=== PATIENT | male | born 1970 | race Caucasian/White ===

== ENCOUNTER → 2016-05-30 | Outpatient (CLI) | payer BC ==
[~2016-05-30] MED LIST: IBUP-1459 PO; OXYC-57 PO
--- NOTE | 2016-05-30 13:11 | DIAGNOSTIC IMAGING REPORT ---
CT OF THE CHEST WITH IV CONTRAST CLINICAL HISTORY: D3A.8 Neuroendocrine [id number] COMPARISON STUDY: No previous studies for comparison. TECHNIQUE: Following the IV administration of 119 mL of Optiray-320, CT of the thorax was performed from the thoracic inlet to the lung bases. Images are reviewed in the axial, sagittal, and coronal planes. IV contrast was administered without complication. CT DOSE: 694.84 mGy.cm FINDINGS: Thyroid: Imaged portions of the thyroid gland are normal in appearance. Thoracic aorta: The thoracic aorta is normal in course and caliber, noting standard 3-vessel arch anatomy. No aneurysm or dissection is seen. Pulmonary vasculature: The pulmonary trunk is normal in caliber. There are no central filling defects identified to suggest pulmonary embolus. Note that this examination was not protocoled for the evaluation of pulmonary emboli. HEART: The heart is normal in size and configuration, without pericardial effusion. Lungs and pleural spaces: No pleural effusions are visualized. There is no focal pulmonary consolidation. There is a 2.5 mm right lower lobe pulmonary nodule on image #[id number]. Mediastinum: There is no mediastinal lymphadenopathy. Erma: Clear. Axilla: Clear. Upper abdomen: To be discussed in separate CT scan of the abdomen and pelvis Skeletal structures: There are no lytic or blastic osseous lesions. IMPRESSION: 1. 2.5 mm right lower lobe pulmonary nodule 2. No evidence of focal pulmonary consolidation 3. No evidence of pathologic adenopathy Electronically signed by: Bnag Velásquez M.D. 05/30/2016 1:09 PM
--- NOTE | 2016-05-31 08:24 | DIAGNOSTIC IMAGING REPORT ---
CT OF THE ABDOMEN AND PELVIS WITH CONTRAST CLINICAL HISTORY: Neuroendocrine tumor. Carcinoid tumor. COMPARISON STUDY: None. TECHNIQUE: Following IV administration of 119 mL of Optiray-320, axial images of the abdomen and pelvis were obtained from the lung bases to the proximal femurs. Images were reviewed in the axial, sagittal, and coronal planes. IV contrast was administered without complication. Oral contrast was administered. FINDINGS: The chest will be reported separately. The sensitivity for detection of hypervascular hepatic lesions is diminished on the exam. However, no hepatic lesions are identified. The spleen, adrenal glands, kidneys and pancreas are normal. There is no abdominal or pelvic lymphadenopathy. There are fat-containing bilateral inguinal hernias, left larger than right. No suspicious osseous lesions are present. There is no ascites. IMPRESSION: 1. No evidence for metastatic disease within the abdomen or pelvis. 2. Decreased sensitivity for detection of hypervascular hepatic lesions given lack arterial phase but no hepatic lesions identified on this exam. Electronically signed by: Nik Lund M.D. 05/31/2016 8:22 AM
== END | disposition home or self-care (01) ==
LOC: C.CTS 10:13
PROVIDERS: ATTEND Internal Medicine
DX: D3A.00 Benign carcinoid tumor of unspecified site (principal); D3A.8 Other benign neuroendocrine tumors; R91.1 Solitary pulmonary nodule

== ENCOUNTER → 2016-06-05 | Outpatient (CLI) | payer BC ==
[2016-06-11 23:32] LABS: 5-HIAA 4.3 mg/24 h (<=6.0)
== END | disposition home or self-care (01) ==
LOC: C.LAB 14:22
PROVIDERS: ATTEND Surgery
DX: D3A.8 Other benign neuroendocrine tumors (principal)

== ENCOUNTER 2016-06-16 05:22 | Inpatient (IN) | payer BC, OTHER ==
[2016-06-09 13:30] VITALS: BMI 26.0
[~2016-06-16] VITALS: Ht 177.8 cm; Wt 81.8 kg
[2016-06-16] VITALS (7 sets, daily range): BP systolic 108–133; BP diastolic 68–83; PULSE 70–97; TEMP 36.5–36.9; O2SAT 93–97; Ht 177.8 cm; Wt 81.8 kg
[2016-06-16] MEDS ORDERED: LACTATED RINGER'S 1000ML 1,000 ML IV SCH (06:00)
--- NOTE | 2016-06-16 06:06 | History & Physical Bridge Note ---
H&P Re-Evaluation Bridge Note: I have examined the patient, reviewed the History & Physical and in the interval since the performance of the History & Physical I have noted the following changes of clinical significance: No changes noted no one at bedside
[2016-06-16] MEDS ORDERED: ROCURONIUM BROMIDE 10 MG/ML 5 ML VIAL ONE ×2 (06:23→08:14)
[2016-06-16] MEDS ORDERED: PROPOFOL IV EMULSION 10 MG/ML 20 ML VIAL IV ONE (06:23)
[2016-06-16] MEDS ORDERED: NEOSTIGMINE METHYLSULFATE 5 MG/5 ML SYR ONE (06:23)
[2016-06-16] MEDS ORDERED: MIDAZOLAM HCL 1 MG/ML 2ML VIAL ONE (06:23)
[2016-06-16] MEDS ORDERED: FENTANYL CITRATE INJ 50 MCG/1 ML 2 ML VIAL ONE ×3 (06:23→09:09)
[2016-06-16] MEDS ORDERED: ONDANSETRON INJ 2 MG/ML 2 ML VIAL ONE (06:23)
[2016-06-16] MEDS ORDERED: GLYCOPYRROLATE INJ 0.2 MG/ML VIAL ONE ×2 (06:23→06:25)
[2016-06-16] MEDS ORDERED: LIDOCAINE HCL 2% 2 ML VIAL (20MG/ML) ONE (06:23)
[2016-06-16] MEDS ORDERED: DEXAMETHASONE SOD INJ 4 MG/ML VIAL ONE (06:23)
[2016-06-16] MEDS ORDERED: HYDROmorphone INJ 2 MG/ML SYR/VIAL ONE (06:27)
[2016-06-16] MEDS ORDERED: MoRPHine SULFATE 10 MG/ML CARP/VIAL IV PRN (07:15)
[2016-06-16] MEDS ORDERED: LABETALOL HCL IV 5 MG/ML 20ML IV PRN (07:15)
[2016-06-16] MEDS ORDERED: FLUMAZENIL 0.1 MG/1 ML 10 ML VIAL IV PRN (07:15)
[2016-06-16] MEDS ORDERED: ATROPINE SULFATE 0.1 MG/ML 5ML SYR IV PRN (07:15)
[2016-06-16] MEDS ORDERED: NALOXONE HCL 0.4 MG/1 ML VIAL/CARP IV PRN ×2 (07:15→10:15)
[2016-06-16] MEDS ORDERED: PHENYLEPHRINE 100MCG/ML 5ML SYR IV PRN (07:15)
[2016-06-16] MEDS ORDERED: EpHEDrine SULFATE INJ 50 MG/ML AMP IV PRN (07:15)
[2016-06-16] MEDS ORDERED: MEPERIDINE HCL 25 MG/ML CARP IV PRN (07:15)
[2016-06-16] MEDS ORDERED: ONDANSETRON INJ 2 MG/ML 2 ML VIAL IV PRN ×2 (07:15→10:15)
[2016-06-16] MEDS ORDERED: CEFOXITIN SOD 1 GM VIAL ONE (07:17)
[2016-06-16] MEDS ORDERED: ACETAMINOPHEN 1000 MG/100 ML IV IV ONE (07:17)
[2016-06-16] MEDS ORDERED: SODIUM CHLORIDE 0.9% INJ 10 ML VIAL ONE (09:29)
--- NOTE | 2016-06-16 10:09 | [facility] Post Operative Brief Note ---
Immediate Operative Summary Operative Date Jun 16, 2016. Pre-Operative Diagnosis carcinoid tumor terminal ileum Post-Operative Diagnosis carcinoid tumor same Procedure(s) Performed Open Resection Ileum and Right Colon Surgeon Dr. Sj Alvarez Architect In Training Surgeon(s) Omega Ortiz Estimated Blood Loss 50 ML Findings small 5mm nodule terminal ileum nicole 1 inch from ileocecal valve frozen section confirms lesion Specimens Frozen 1. illeum and right colon Permanen A: omentum Drains 1/4 inch courtney sub cut
[2016-06-16] MEDS ORDERED: MoRPHine SULFATE 1 MG/ML 50 ML PCA CASS ONE (10:21)
--- NOTE | 2016-06-16 10:36 | OPERATIVE REPORT ---
DATE OF OPERATION: 06/16/2016 PREOPERATIVE DIAGNOSIS: Biopsy proven carcinoid tumor terminal ileum. POSTOPERATIVE DIAGNOSIS: Same. PROCEDURE: Right ileum and right colon resection with primary imwe-vh-bklw anastomosis. SURGEON: Dr. Alvarez. ELECTRICAL ELECTRONICS ENGINEERS: Talib Ortiz PA-C. OPERATION AND FINDINGS: SUMMARY: The patient was brought into the operating room theater. The abdomen was prepped with Betadine solution and properly draped. Sanchez catheter was inserted. We made a small incision around the umbilicus up towards the epigastric area, deepened through subcutaneous tissue into the belly wall. We at this time were able to elevate the wall, placed a hand on there, we could identify the cecum, but we also feel that the right colon and the hepatic flexure was really stuck to the anterior abdominal wall into the gallbladder area, also towards the liver. We at this point enlarged the incision sufficiently enough that we divided the white line of Toldt sufficiently enough to elevate the terminal ileum up into the wound, meticulously took around the right colon mobilized the hepatic flexure significantly that we can delivered all into the wound. Of note, the patient had quite a bit of abdominal scar tissue fatty lobulated area throughout the abdomen with adhesions intramesenterically. I am not sure that this gentleman may have had an injury in the past that caused this diffuse sort of inflammatory response but since he has had no previous abdominal adhesions may have had some trauma. Having said that, once we mobilized the said segment we brought it up onto the operative field. I tried to feel out the area of the terminal ileum. Initially it was up all the way about 6 inches, could not feel anything then we retrospectively went back and felt an area about an inch from the ileocecal valve that was quite hard and pretty much the characteristics of what had been biopsied. There was no tattoo in the area. At this point, we divided the terminal ileum using a BRIONNA stapler 60 and also divided the terminal ileum just to right of the middle colic. We then scored the mesentery, completely delivered the right colon and terminal ileum and the hepatic flexure out into the wound. We avoided the duodenal area. As we had ligated these with 2-0 silk suture we marked the apical area right at our line of resection in the mesentery first place that we would try to suture the mesentery closed. The specimen was then removed and sent to pathology to confirm that this was the area in the terminal ileum. I had opened the terminal ileum, I could document that area and frozen section confirmed that this is a carcinoid. The 2 staple lines were oversewn with 3-0 interrupted silk suture, then a etgx-ur-fzus anastomosis was done with 3-0 silk and 3-0 chromic inner side, anastomosis could accommodate 2 fingers. We closed the mesentery so there was no possibility of hernia. We returned the viscera in normal anatomical position and checked the abdomen for hemostasis and appeared satisfactory. We irrigated the right upper quadrant, placed the packing in that area and there was no evidence of any ongoing bleeding. Once this was all removed, I tried to see if I could feel the stomach, possibility to put an NG tube in, but this inflammatory response of the omentum was going up towards the greater curvature therefore I left it intact, plus there was no evidence of any obstruction in the bowel as we ran it, I left the NG tube out. The abdomen was then closed with interrupted #1 PDS [id number]. Subcutaneous tissue now closed and irrigated, quarter inch Tendoy was placed in the subcutaneous and conrad for skin edges. Dressing was applied. The procedure was tolerated well by the patient. Estimated blood loss approximately 50 mL. The patient was taken to recovery room in good condition. I attest to the content of the Intraoperative Record and any orders documented therein. Any exceptio ns are noted below.
[2016-06-16] MEDS ORDERED: KETOROLAC TROMETHAMINE 30 MG/ML VIAL ONE (10:41)
[2016-06-16] MEDS: HYDROmorphone INJ 1 MG/ML SYR IV PRN ×4 (10:42→10:57)
[2016-06-16] MEDS ORDERED: KETOROLAC TROMETHAMINE 30 MG/ML VIAL IV STA (10:46)
--- NOTE | 2016-06-16 11:41 | Anesthesiology Progress Note ---
Anesthesia Post Op Note Date & Time Jun 16, 2016 at 11:41 Vital Signs Pain Intensity: 3 Vital Signs Past 12 Hours Date Time Temp Pulse Resp B/P Pulse Ox O2 Delivery O2 Flow Rate FiO2 06/16/16 11:33 110/68 06/16/16 11:30 94 14 95 06/16/16 11:30 90 06/16/16 11:28 113/64 06/16/16 11:25 80 06/16/16 11:25 81 14 90 06/16/16 11:23 107/60 06/16/16 11:20 89 14 06/16/16 11:20 88 14 96 06/16/16 11:18 116/66 06/16/16 11:15 92 15 06/16/16 11:15 94 15 94 06/16/16 11:14 76 16 97 06/16/16 11:14 75 16 06/16/16 11:13 112/62 06/16/16 11:09 76 13 97 06/16/16 11:09 75 13 06/16/16 11:08 114/72 06/16/16 11:04 93 12 96 06/16/16 11:04 94 12 06/16/16 11:03 36.4 06/16/16 11:00 84 14 06/16/16 11:00 84 14 96 06/16/16 10:58 117/77 06/16/16 10:55 96 16 94 06/16/16 10:55 94 16 06/16/16 10:53 112/82 06/16/16 10:50 81 17 06/16/16 10:50 80 17 99 06/16/16 10:49 129/76 06/16/16 10:45 87 14 97 06/16/16 10:45 85 14 06/16/16 10:43 119/76 06/16/16 10:40 Nasal Cannula 4 06/16/16 10:40 96 12 124/82 98 06/16/16 10:40 95 12 06/16/16 10:39 /75 06/16/16 10:35 96 22 97 06/16/16 10:35 96 22 06/16/16 10:33 117/67 06/16/16 10:30 91 16 95 06/16/16 10:30 92 16 06/16/16 10:28 112/65 06/16/16 10:25 89 16 06/16/16 10:25 89 16 93 06/16/16 10:23 103/71 06/16/16 10:20 85 12 06/16/16 10:20 86 12 99 06/16/16 10:18 116/68 06/16/16 10:15 88 20 99 06/16/16 10:15 88 20 06/16/16 10:13 104/72 06/16/16 10:12 107/66 06/16/16 10:10 37 90 16 107/66 98 Mask 10 06/16/16 05:39 36.7 97 18 133/83 97 Room Air Notes Mental Status: alert / awake / arousable, participated in evaluation Pt Amnestic to Procedure: Yes Nausea / Vomiting: adequately controlled Pain: adequately controlled Airway Patency, RR, SpO2: stable & adequate BP & HR: stable & adequate Hydration State: stable & adequate Anesthetic Complications: no major complications apparent
[2016-06-16] MEDS: CEFOXITIN IV 2,000 MG in DEXTROSE 5% 50ML 50 ML IV SCH ×2 (13:22→20:31)
[2016-06-16] MEDS: SODIUM CHLORIDE 0.9% 1000ML 1,000 ML IV SCH (13:22)
[2016-06-16 13:26] LABS: PROTHROMBIN TIME (PATIENT) 10.9 SECONDS (9.0-12.0)
[2016-06-16] MEDS ORDERED: NURSING VERBAL MED ORDER ONE ×2 (13:30→13:45)
[2016-06-16] MEDS: LACTATED RINGER'S 1000ML 1,000 ML IV SCH ×2 (14:18→21:33)
[2016-06-16] MEDS: ACETAMINOPHEN IV 1,000 MG in EMPTY BAG 0 ML IV SCH (14:18)
[2016-06-16] MEDS: HEPARIN SOD 5000 UNIT/0.5 ML CARP SQ SCH (19:32)
[2016-06-16] MEDS: MoRPHine SULFATE 1 MG/ML 50 ML PCA CASS IV PRN (22:58)
[2016-06-17] VITALS (8 sets, daily range): BP systolic 95–127; BP diastolic 58–72; PULSE 75–96; TEMP 36.7–37.1; O2SAT 91–96
[2016-06-17] MEDS: ACETAMINOPHEN IV 1,000 MG in EMPTY BAG 0 ML IV SCH ×2 (00:01→08:12)
[2016-06-17] MEDS: CEFOXITIN IV 2,000 MG in DEXTROSE 5% 50ML 50 ML IV SCH (01:55)
[2016-06-17] MEDS: MoRPHine SULFATE 1 MG/ML 50 ML PCA CASS IV PRN ×4 (02:03→23:18)
[2016-06-17] MEDS: LACTATED RINGER'S 1000ML 1,000 ML IV SCH ×3 (04:56→21:29)
[2016-06-17] MEDS ORDERED: NURSING VERBAL MED ORDER ONE (06:15)
[2016-06-17] MEDS: HEPARIN SOD 5000 UNIT/0.5 ML CARP SQ SCH ×3 (06:33→21:40)
[2016-06-17] MEDS ORDERED: KETOROLAC TROMETHAMINE 30 MG/ML VIAL IV PRN (06:45)
--- NOTE | 2016-06-17 06:56 | Surgery Progress Note ---
Surgery Progress Note Date of Service Jun 17, 2016. Subjective Post OP Day: 1 + pain controlled, + using CENTERLESS GRINDER OPERATOR, No nausea Objective Vital Signs: Date Time Temp Pulse Resp B/P Pulse Ox O2 Delivery O2 Flow Rate FiO2 06/17/16 03:51 36.7 96 16 127/71 96 Nasal Cannula 2.0 06/17/16 00:00 95 Nasal Cannula 4.0 06/16/16 23:20 36.9 87 16 117/73 97 Nasal Cannula 4.0 06/16/16 19:34 36.9 70 16 113/72 97 Nasal Cannula 4.0 06/16/16 15:14 36.8 96 16 114/69 97 Nasal Cannula 4.0 06/16/16 14:20 36.8 14 123/72 94 Nasal Cannula 4.0 06/16/16 13:37 Nasal Cannula 4.0 06/16/16 13:10 36.5 88 16 108/68 93 Nasal Cannula 2.0 06/16/16 12:10 36.8 81 16 109/68 95 Nasal Cannula 4.0 06/16/16 12:10 Nasal Cannula 4.0 06/16/16 12:10 95 Nasal Cannula 4.0 06/16/16 11:49 81 12 96 06/16/16 11:49 81 12 06/16/16 11:48 104/64 06/16/16 11:44 85 13 06/16/16 11:44 85 12 98 06/16/16 11:43 107/65 06/16/16 11:39 92 14 94 06/16/16 11:39 91 14 06/16/16 11:38 110/68 06/16/16 11:34 80 7 95 06/16/16 11:34 81 7 06/16/16 11:33 110/68 06/16/16 11:30 94 14 95 06/16/16 11:30 90 06/16/16 11:28 113/64 06/16/16 11:25 80 06/16/16 11:25 81 14 90 06/16/16 11:23 107/60 06/16/16 11:20 89 14 06/16/16 11:20 88 14 96 06/16/16 11:18 116/66 06/16/16 11:15 92 15 06/16/16 11:15 94 15 94 06/16/16 11:14 76 16 97 1/19/17 11:14 75 16 06/16/16 11:13 112/62 06/16/16 11:09 76 13 97 06/16/16 11:09 75 13 06/16/16 11:08 114/72 06/16/16 11:04 93 12 96 06/16/16 11:04 94 12 06/16/16 11:03 36.4 06/16/16 11:00 84 14 06/16/16 11:00 84 14 96 06/16/16 10:58 117/77 06/16/16 10:55 96 16 94 06/16/16 10:55 94 16 06/16/16 10:53 112/82 06/16/16 10:50 81 17 06/16/16 10:50 80 17 99 06/16/16 10:49 129/76 06/16/16 10:45 87 14 97 06/16/16 10:45 85 14 06/16/16 10:43 119/76 06/16/16 10:40 Nasal Cannula 4 06/16/16 10:40 96 12 124/82 98 06/16/16 10:40 95 12 06/16/16 10:39 /75 06/16/16 10:35 96 22 97 06/16/16 10:35 96 22 06/16/16 10:33 117/67 06/16/16 10:30 91 16 95 06/16/16 10:30 92 16 06/16/16 10:28 112/65 06/16/16 10:25 89 16 06/16/16 10:25 89 16 93 06/16/16 10:23 103/71 06/16/16 10:20 85 12 06/16/16 10:20 86 12 99 06/16/16 10:18 116/68 06/16/16 10:15 88 20 99 06/16/16 10:15 88 20 06/16/16 10:13 104/72 06/16/16 10:12 107/66 06/16/16 10:10 37 90 16 107/66 98 Mask 10 Physical Exam: urine output (325) Abdomen: soft, + distended (slighlty) Incision(s): drainage (from courtney) Laboratory Results: Results Past 24 Hours Test 06/16/16 13:05 06/17/16 04:44 Range/Units Prothrombin Time 10.9 9.0-12.0 SECONDS Prothromb Time International Ratio 1.0 0.9-1.1 Microbiology Results 06/16/16 Urine Culture, Received Pending Assessment & Plan s/p right hemicolectomy little bloated, maybe clears later today ambulate stopped continuous on CENTERLESS GRINDER OPERATOR, add prn Ofirmev, Toradol labs pending d/c reilly later when OOB
[2016-06-17] MEDS ORDERED: ACETAMINOPHEN IV 100 ML IV PRN (07:00)
[2016-06-17 07:29] LABS: BASO % 0.1 %; BASO ABS # 0.01 K/uL (0-0.2); COMPLETE YES; HEMATOCRIT 35.7 % (42-52); IG% 0.3 %; LYMPH % 8.1 %; MEAN CELL VOLUME 88.1 fL (80-100); MEAN CORPUSCULAR HEMOGLOBIN 30.1 pg (25-34); MEAN CORPUSCULAR HGB CONC 34.2 g/dl (32-36); MEAN PLATELET VOLUME 10.9 fL (7.4-10.4); MONO % 10.7 %; NEUT % 80.8 %; PLATELET COUNT 199 K/uL (130-400); RED BLOOD COUNT 4.05 M/uL (4.7-6.1); WHITE BLOOD COUNT 14.77 K/uL (4.8-10.8)
--- NOTE | 2016-06-17 07:36 | Anesthesiology Progress Note ---
Anesthesia Post Op Note Date & Time Jun 17, 2016 at 07:35 Vital Signs Pain Intensity: 4.0 Vital Signs Past 12 Hours Date Time Temp Pulse Resp B/P Pulse Ox O2 Delivery O2 Flow Rate FiO2 06/17/16 07:12 36.7 77 16 102/65 95 Room Air 06/17/16 03:51 36.7 96 16 127/71 96 Nasal Cannula 2.0 06/17/16 00:00 95 Nasal Cannula 4.0 06/16/16 23:20 36.9 87 16 117/73 97 Nasal Cannula 4.0 Notes Mental Status: alert / awake / arousable, participated in evaluation Pt Amnestic to Procedure: Yes Nausea / Vomiting: adequately controlled Pain: adequately controlled Airway Patency, RR, SpO2: stable & adequate BP & HR: stable & adequate Hydration State: stable & adequate Anesthetic Complications: no major complications apparent
--- NOTE | 2016-06-17 07:50 | PROGRESS NOTE ---
DATE: 06/17/2016 Jose is resting comfortably, although he is having some abdominal discomfort as expected. He is alert, coherent. Intraoperative findings were discussed with him again as I had yesterday afternoon. His last vitals showed a temperature of 36.7, pulse 77, respirations 16, blood pressure 102/65. I\T\O, he had 325 mL of urine overnight. The abdomen is softly distended. The dressing is a little tinged of blood. He has a drain in the subQ. Laboratory studies this morning showed a chemistry of hemoglobin 12.2, WBC is 14.77. The chemistries pending. At this point we will discontinue the Sanchez. Increase his activity. Change the abdominal dressing. Probably remove the drain in a few days and start him slightly on a clear liquid diet. He is not nauseated. His pain seems to be managed well.
[2016-06-17 07:58] LABS: BUN/CREATININE RATIO 14.9 (10-20); CALCIUM 8.5 mg/dl (8.5-10.1); POTASSIUM 4.6 mmol/L (3.5-5.1)
[2016-06-17] MEDS: SODIUM CHLORIDE 0.9% 1000ML 1,000 ML IV SCH (10:09)
[2016-06-18] MEDS: LACTATED RINGER'S 1000ML 1,000 ML IV SCH ×3 (00:04→13:26)
[2016-06-18] MEDS: HEPARIN SOD 5000 UNIT/0.5 ML CARP SQ SCH ×3 (05:51→21:36)
--- NOTE | 2016-06-18 05:54 | Surgery Progress Note ---
Surgery Progress Note Date of Service Jun 18, 2016. Subjective Post OP Day: 2 + using DISTRIBUTION WAREHOUSE MANAGER, No bowel movement, No flatus, No vomiting awake, alert, using DISTRIBUTION WAREHOUSE MANAGER some, voiding- good ur output walked a little yest Objective Vital Signs: Date Time Temp Pulse Resp B/P Pulse Ox O2 Delivery O2 Flow Rate FiO2 06/18/16 00:00 Room Air 06/17/16 22:59 36.7 76 16 117/72 92 Room Air 06/17/16 16:00 92 Room Air 06/17/16 15:18 36.7 81 16 95/58 92 Room Air 06/17/16 11:15 91 Room Air 06/17/16 11:09 37.1 75 19 104/64 95 Nasal Cannula 2.0 06/17/16 11:00 Nasal Cannula 1.0 06/17/16 07:12 36.7 77 16 102/65 95 Room Air General Appearance: no apparent distress Respiratory/Chest: no respiratory distress Abdomen: + distended (mild distention, some bowel sounds but decreased) Incision(s): dry Laboratory Results: Results Past 24 Hours Test 06/17/16 06:15 06/18/16 04:44 Range/Units White Blood Count 14.77 4.8-10.8 K/uL Red Blood Count 4.05 4.7-6.1 M/uL Hemoglobin 12.2 14.0-18.0 g/dL Hematocrit 35.7 42-52 % Mean Corpuscular Volume 88.1 80-100 fL Mean Corpuscular Hemoglobin 30.1 25-34 pg Mean Corpuscular Hemoglobin Concent 34.2 32-36 g/dl Platelet Count 199 130-400 K/uL Mean Platelet Volume 10.9 7.4-10.4 fL Neutrophils (%) (Auto) 80.8 % Lymphocytes (%) (Auto) 8.1 % Monocytes (%) (Auto) 10.7 % Eosinophils (%) (Auto) 0.0 % Basophils (%) (Auto) 0.1 % Neutrophils # (Auto) 11.93 1.4-6.5 K/uL Lymphocytes # (Auto) 1.20 1.2-3.4 K/uL Monocytes # (Auto) 1.58 0.11-0.59 K/uL Eosinophils # (Auto) 0.00 0-0.5 K/uL Basophils # (Auto) 0.01 0-0.2 K/uL RDW Standard Deviation 42.7 36.4-46.3 fL RDW Coefficient of Variation 13.2 11.5-14.5 % Immature Granulocyte % (Auto) 0.3 % Immature Granulocyte # (Auto) 0.05 0.00-0.02 K/uL Sodium Level 137 136-145 mmol/L Potassium Level 4.6 3.5-5.1 mmol/L Chloride Level 101 98-107 mmol/L Carbon Dioxide Level 25 21-32 mmol/L Anion Gap 11.0 3-11 mmol/L Blood Urea Nitrogen 15 7-18 mg/dl Creatinine 1.00 0.60-1.40 mg/dl Est Creatinine Clear Calc Drug Dose 96.3 ml/min Estimated GFR () 104.9 Estimated GFR (Non- 90.5 BUN/Creatinine Ratio 14.9 10-20 Random Glucose 124 70-99 mg/dl Calcium Level 8.5 8.5-10.1 mg/dl Assessment & Plan 06/18/16- s/p Rt colectomy, encourage mobility, cont current IV meds advance diet when Gi activity improves, check labs
[2016-06-18] MEDS: MoRPHine SULFATE 1 MG/ML 50 ML PCA CASS IV PRN ×3 (07:01→19:26)
[2016-06-18 07:14] LABS: COMPLETE YES; EOS % 0.3 %; HEMATOCRIT 32.1 % (42-52); IG% 0.1 %; LYMPH % 16.1 %; LYMPH ABS # 1.54 K/uL (1.2-3.4); MEAN CELL VOLUME 89.4 fL (80-100); MEAN CORPUSCULAR HEMOGLOBIN 30.6 pg (25-34); MEAN CORPUSCULAR HGB CONC 34.3 g/dl (32-36); MEAN PLATELET VOLUME 11.1 fL (7.4-10.4); NEUT % 73.5 %; PLATELET COUNT 178 K/uL (130-400); RED BLOOD COUNT 3.59 M/uL (4.7-6.1); WHITE BLOOD COUNT 9.54 K/uL (4.8-10.8)
[2016-06-18 07:24] VITALS: BP 116/76; PULSE 73; TEMP 37; O2SAT 92
[2016-06-18 07:56] LABS: CALCIUM 8.4 mg/dl (8.5-10.1); CREATININE 0.8 mg/dl (0.60-1.40); POTASSIUM 3.8 mmol/L (3.5-5.1)
[2016-06-18] MEDS: SODIUM CHLORIDE 0.9% 1000ML 1,000 ML IV SCH (10:09)
[2016-06-18 15:01] VITALS: BP 121/75; PULSE 75; TEMP 36.8; O2SAT 92
[2016-06-18 23:17] VITALS: BP 117/72; PULSE 86; TEMP 37.1; O2SAT 95
[2016-06-19 03:07] VITALS: BP 110/70; PULSE 86; TEMP 37.2; O2SAT 92
[2016-06-19] MEDS: LACTATED RINGER'S 1000ML 1,000 ML IV SCH ×2 (05:19→14:23)
[2016-06-19] MEDS: HEPARIN SOD 5000 UNIT/0.5 ML CARP SQ SCH ×3 (05:20→21:19)
[2016-06-19 06:02] LABS: BASO % 0.1 %; BASO ABS # 0.01 K/uL (0-0.2); COMPLETE YES; EOS % 3.6 %; HEMATOCRIT 35.7 % (42-52); IG% 0.1 %; LYMPH % 27.6 %; LYMPH ABS # 2.45 K/uL (1.2-3.4); MEAN CELL VOLUME 90.4 fL (80-100); MEAN CORPUSCULAR HEMOGLOBIN 30.6 pg (25-34); MEAN CORPUSCULAR HGB CONC 33.9 g/dl (32-36); MEAN PLATELET VOLUME 10.2 fL (7.4-10.4); MONO % 11.1 %; NEUT % 57.5 %; PLATELET COUNT 179 K/uL (130-400); RED BLOOD COUNT 3.95 M/uL (4.7-6.1); WHITE BLOOD COUNT 8.88 K/uL (4.8-10.8)
--- NOTE | 2016-06-19 06:17 | Surgery Progress Note ---
Surgery Progress Note Date of Service Jun 19, 2016. Subjective Post OP Day: 3 No nausea, No vomiting feels ok, tolerating clear liquids small amt flatus, no bm yet walking Objective Vital Signs: Date Time Temp Pulse Resp B/P Pulse Ox O2 Delivery O2 Flow Rate FiO2 06/19/16 03:07 37.2 86 16 110/70 92 Room Air 06/18/16 23:17 37.1 86 16 117/72 95 Room Air 06/18/16 19:45 Room Air 06/18/16 15:01 36.8 75 18 121/75 92 Room Air 06/18/16 10:20 Room Air 06/18/16 07:24 37.0 73 16 116/76 92 Room Air General Appearance: no apparent distress Respiratory/Chest: no respiratory distress Abdomen: + distended (very mild distention, some bowel sounds) Incision(s): dry, intact Laboratory Results: Results Past 24 Hours Test 06/19/16 05:30 Range/Units White Blood Count 8.88 4.8-10.8 K/uL Red Blood Count 3.95 4.7-6.1 M/uL Hemoglobin 12.1 14.0-18.0 g/dL Hematocrit 35.7 42-52 % Mean Corpuscular Volume 90.4 80-100 fL Mean Corpuscular Hemoglobin 30.6 25-34 pg Mean Corpuscular Hemoglobin Concent 33.9 32-36 g/dl Platelet Count 179 130-400 K/uL Mean Platelet Volume 10.2 7.4-10.4 fL Neutrophils (%) (Auto) 57.5 % Lymphocytes (%) (Auto) 27.6 % Monocytes (%) (Auto) 11.1 % Eosinophils (%) (Auto) 3.6 % Basophils (%) (Auto) 0.1 % Neutrophils # (Auto) 5.10 1.4-6.5 K/uL Lymphocytes # (Auto) 2.45 1.2-3.4 K/uL Monocytes # (Auto) 0.99 0.11-0.59 K/uL Eosinophils # (Auto) 0.32 0-0.5 K/uL Basophils # (Auto) 0.01 0-0.2 K/uL RDW Standard Deviation 44.5 36.4-46.3 fL RDW Coefficient of Variation 13.4 11.5-14.5 % Immature Granulocyte % (Auto) 0.1 % Immature Granulocyte # (Auto) 0.01 0.00-0.02 K/uL Assessment & Plan 06/19/16- slow progress- adv to full liquids, cont STITCH BONDING MACHINE OPERATOR- not using much cont IV- decrease rate 06/18/16- s/p Rt colectomy, encourage mobility, cont current IV meds advance diet when Gi activity improves, check labs 06/18/16- s/p Rt colectomy, encourage mobility, cont current IV meds advance diet when Gi activity improves, check labs
[2016-06-19 06:44] LABS: BUN/CREATININE RATIO 6.4 (10-20); CALCIUM 8.3 mg/dl (8.5-10.1); CREATININE 0.91 mg/dl (0.60-1.40); POTASSIUM 3.4 mmol/L (3.5-5.1)
[2016-06-19 07:10] VITALS: BP 138/91; PULSE 88; TEMP 37.2; O2SAT 94
[2016-06-19] MEDS: MoRPHine SULFATE 1 MG/ML 50 ML PCA CASS IV PRN ×4 (07:55→22:54)
[2016-06-19] MEDS: SODIUM CHLORIDE 0.9% 1000ML 1,000 ML IV SCH (10:09)
[2016-06-19 11:14] VITALS: BP 112/71; PULSE 98; TEMP 36.9; O2SAT 94
[2016-06-19 15:53] VITALS: BP 128/79; PULSE 93; TEMP 37.3; O2SAT 94
[2016-06-19 19:03] VITALS: BP 128/81; PULSE 89; TEMP 37.1; O2SAT 96
[2016-06-19 22:51] VITALS: BP 115/74; PULSE 88; TEMP 37.2; O2SAT 93
[2016-06-20] VITALS (7 sets, daily range): BP systolic 109–142; BP diastolic 68–83; PULSE 81–105; TEMP 36.9–37.2; O2SAT 92–96
[2016-06-20] MEDS: LACTATED RINGER'S 1000ML 1,000 ML IV SCH ×2 (01:34→06:20)
[2016-06-20] MEDS: HEPARIN SOD 5000 UNIT/0.5 ML CARP SQ SCH ×2 (06:14→20:09)
--- NOTE | 2016-06-20 07:50 | SURGERY PROGRESS NOTE ---
DATE: 06/20/2016 HISTORY OF PRESENT ILLNESS: Jose is fourth postoperative day status post resection of ileum and right colon for carcinoid tumor. He has had some flatus, but he has not had his bowel movement yet. PHYSICAL EXAMINATION: His last vitals showed a temperature of 37.1, pulse 84, respirations 16, blood pressure 109/68, O2 sats 92 on room air. His abdomen is slightly distended. The incision has a Myles drain and he has got some ecchymosis around the lower aspect of the incision with some bleeding through the [place] itself. This is probably due to the heparin and therefore, we will decrease it to q. 12 hours. LABORATORY STUDIES: This morning is pending, but yesterday's potassium was 3.4. ASSESSMENT AND PLAN: We will add some potassium on his IV today and recheck his labs. But overall, he seems to progressing well. His path report is still pending.
[2016-06-20 08:11] LABS: BASO % 0.3 %; BASO ABS # 0.02 K/uL (0-0.2); COMPLETE YES; EOS % 4.1 %; HEMATOCRIT 35.4 % (42-52); IG% 0.3 %; LYMPH % 20.8 %; LYMPH ABS # 1.59 K/uL (1.2-3.4); MEAN CORPUSCULAR HEMOGLOBIN 30.2 pg (25-34); MEAN CORPUSCULAR HGB CONC 34.7 g/dl (32-36); MONO % 13.2 %; NEUT % 61.3 %; PLATELET COUNT 198 K/uL (130-400); RED BLOOD COUNT 4.07 M/uL (4.7-6.1); WHITE BLOOD COUNT 7.63 K/uL (4.8-10.8)
[2016-06-20] MEDS: POTASSIUM CHLORIDE INJ 20 MEQ in LACTATED RINGER'S 1000ML 1,000 ML IV SCH ×2 (08:18→20:03)
[2016-06-20] MEDS: SODIUM CHLORIDE 0.9% 1000ML 1,000 ML IV SCH (08:18)
[2016-06-20 08:47] LABS: BUN/CREATININE RATIO 9.4 (10-20); CALCIUM 8.9 mg/dl (8.5-10.1); CREATININE 0.83 mg/dl (0.60-1.40); POTASSIUM 3.7 mmol/L (3.5-5.1)
[2016-06-20] MEDS: MoRPHine SULFATE 1 MG/ML 50 ML PCA CASS IV PRN (19:00)
[2016-06-21 03:10] VITALS: BP 102/64; PULSE 76; TEMP 36.8; O2SAT 93
[2016-06-21] MEDS: OXYCODONE/ACETAMINOPHEN 5-325 TAB PO PRN ×5 (06:03→23:58)
--- NOTE | 2016-06-21 06:12 | SURGERY PROGRESS NOTE ---
DATE: 06/21/2016 Jose is status post operative day status post resection of terminal ileum and right colon. He states he feels better. He is starting to pass some flatus. His abdomen is less distended. His last vitals showed a temperature of 36.8, pulse 76, respirations 16, blood pressure 102/64, O2 sats 93 on room air. I\T\O, he is mobilizing fluids. He is tolerating a liquid diet. He has not had a bowel movement yet, but hopefully this will materialize today and we can discharge him. The abdomen is softer than yesterday. The incision appears intact. The path report is still pending.
[2016-06-21] MEDS ORDERED: OXYC-57 PO (07:24)
--- NOTE | 2016-06-21 07:26 | Discharge Instructions ---
Discharge Instructions Admission Reason for Admission: Carcinoid Tumor, Ileum Discharge Discharge Diagnosis / Problem: right hemicolectomy Discharge Goals Goal(s): Improve disease control Activity Recommendations Activity Limitations: per Instructions/Follow-up section Lifting Limitations: no more than 10 pounds Shower/Bathe: no limitations Driving or Machine Use: if not taken Percocet . Instructions / Follow-Up Instructions / Follow-Up Dr. Alvarez within 1 week, call [phone] if you do not already have an appt Current Hospital Diet Patient's current hospital diet: Full Liquid Diet Discharge Diet Recommended Diet: Regular Diet (eat lighlt for a few days) Procedures Procedures Performed: Open Resection Ileum and Right Colon Pending Studies Studies pending at discharge: no Medical Emergencies . Who to Call and When: Medical Emergencies: If at any time you feel your situation is an emergency, please call 911 immediately. . Non-Emergent Contact Non-Emergency issues call your: Surgeon Call Non-Emergent contact if: you have a fever, temperature is above 101.5, your pain is not controlled, your pain is worsening, wound has increased redness , wound has increased pain . "Provider Documentation" section prepared by Omega Ortiz. VTE Core Measure Inpt VTE Proph given/why not?: Unfractionated heparin SQ, SCD's
[2016-06-21 07:27] VITALS: BP 112/74; PULSE 73; TEMP 36.8; O2SAT 95
[2016-06-21] MEDS: HEPARIN SOD 5000 UNIT/0.5 ML CARP SQ SCH ×2 (08:00→19:56)
[2016-06-21] MEDS: POTASSIUM CHLORIDE INJ 20 MEQ in LACTATED RINGER'S 1000ML 1,000 ML IV SCH (09:33)
[2016-06-21] MEDS ORDERED: NURSING VERBAL MED ORDER ONE (13:30)
[2016-06-21 15:15] VITALS: BP 106/62; PULSE 81; TEMP 36.9; O2SAT 95
[2016-06-21 22:56] VITALS: BP 110/64; PULSE 78; TEMP 36.5; O2SAT 93
[2016-06-22 07:23] VITALS: BP 135/76; PULSE 72; TEMP 36.7; O2SAT 94
[2016-06-22] MEDS: HEPARIN SOD 5000 UNIT/0.5 ML CARP SQ SCH (08:00)
[2016-06-22] MEDS: OXYCODONE/ACETAMINOPHEN 5-325 TAB PO PRN (08:51)
[2016-06-22 09:15] VITALS: BP 135/76; PULSE 72; TEMP 36.7; O2SAT 94
--- NOTE | 2016-06-22 09:26 | SURGERY PROGRESS NOTE ---
DATE: 06/22/2016 DATE: 06/22/2016. Jose is doing well. He has been up and around, has moved his bowels. He is having no real abdominal discomfort, tolerating a diet and he is anxious to go home. His last vitals showed a temperature of 36.7, pulse 72, respirations 14, blood pressure 135/76. Laboratory moss, we have not obtained last couple days, but last hemoglobin was 12.3. The abdomen is soft. He does have some ecchymosis just flank around the incision and this is related to the heparin that he had subQ. At this point, the patient can be discharged. Instructions were written yesterday and further reiterated to him that if there is any problem to call us. We will see him back in our office next week. The path report I did discuss with the patient again this morning is not back yet.
--- NOTE | 2016-06-29 11:37 | DISCHARGE SUMMARY ---
PRIMARY DISCHARGE DIAGNOSIS: Carcinoid tumor of the terminal ileum. PROCEDURE PERFORMED: Right ileum and right colon resection with primary qbjb-kj-oabi anastomosis. HOSPITAL COURSE: The patient is a 46-year-old male with biopsy proven carcinoid tumor over the terminal ileum, admitted through same day and taken to the operating room for right colon and terminal ileum resection. The procedure was well tolerated. He was transferred to the surgical floor. Subcutaneous heparin was used for DVT prophylaxis. Perioperative antibiotics were continued for 24 hours. Sanchez catheter was removed on postoperative day 1. He was started on clear liquids. His pain was managed with a SUPERVISOR METAL FURNITURE FABRICATION and p.r.n. Ofirmev. He had sounds of returning bowel function on postoperative day 3, was advanced to full liquids. By day 4, he was having loose bowel movements. He was advanced to a regular diet, which he tolerated moderately in the evening. By the next morning, he was tolerating diet and oral analgesics. He was stable for discharge on postoperative day 5. A Myles drain had been removed from the incision. DISCHARGE INSTRUCTIONS: Discharge home. Follow up with Dr. Alvarez in 1 week. DISCHARGE MEDICATIONS: Percocet 1-2 tablets every 4 hours as needed. Pathology specimen showed a carcinoid tumor 0.8 cm in the terminal ileum. There was metastatic neuroendocrine tumor present in 1 of 20 lymph nodes (1/20).
== END 2016-06-22 11:15 | disposition home or self-care (01) | DRG 331 ==
LOC: ENRESERVTM → ENRESERVDT → C.ACU 05:22 → C.MSW 11:01
PROVIDERS: ADMIT Surgery; ATTEND Surgery
PROC: 0DBB0ZX Excision of Ileum, Open Approach, Diagnostic (ICD-10-PCS; principal; 2016-06-16 07:00)
PROC: 0DTF0ZZ Resection of Right Large Intestine, Open Approach (ICD-10-PCS; principal; 2016-06-16 07:00)
DX: D3A.012 Benign carcinoid tumor of the ileum (principal); K40.20 Bilateral inguinal hernia, without obstruction or gangrene, not specified as recurrent; Z80.42 Family history of malignant neoplasm of prostate; Z82.49 Family history of ischemic heart disease and other diseases of the circulatory system; Z83.3 Family history of diabetes mellitus; Z83.6 Family history of other diseases of the respiratory system; Z84.1 Family history of disorders of kidney and ureter

== ENCOUNTER → 2016-09-02 | Outpatient (CLI) | payer BC ==
[2016-09-02 16:45] LABS: BASO % 0.6 %; BASO ABS # 0.04 K/uL (0-0.2); COMPLETE YES; EOS % 3.9 %; HEMATOCRIT 43.9 % (42-52); IG% 0.1 %; LYMPH % 33.9 %; LYMPH ABS # 2.33 K/uL (1.2-3.4); MEAN CELL VOLUME 86.9 fL (80-100); MEAN CORPUSCULAR HEMOGLOBIN 29.7 pg (25-34); MEAN CORPUSCULAR HGB CONC 34.2 g/dl (32-36); MEAN PLATELET VOLUME 10.9 fL (7.4-10.4); MONO % 8.3 %; NEUT % 53.2 %; PLATELET COUNT 217 K/uL (130-400); RED BLOOD COUNT 5.05 M/uL (4.7-6.1); WHITE BLOOD COUNT 6.88 K/uL (4.8-10.8)
[2016-09-02 17:04] LABS: BLOOD UREA NITROGEN 13 mg/dl (7-18); BUN/CREATININE RATIO 13.4 (10-20); CALCIUM 9.4 mg/dl (8.5-10.1); CARBON DIOXIDE 29 mmol/L (21-32); CHLORIDE 103 mmol/L (98-107); CREATININE 0.94 mg/dl (0.60-1.40); GLUCOSE 91 mg/dl (70-99); POTASSIUM 4.3 mmol/L (3.5-5.1); SODIUM 140 mmol/L (136-145)
== END | disposition home or self-care (01) ==
LOC: C.LABBC 13:16
PROVIDERS: ATTEND Surgery
DX: Z01.812 Encounter for preprocedural laboratory examination (principal); K40.20 Bilateral inguinal hernia, without obstruction or gangrene, not specified as recurrent

== ENCOUNTER 2016-09-22 05:22 | Day surgery (SDC) | payer BC, OTHER ==
[2016-08-24 10:10] VITALS: BMI 26.0
[~2016-09-22] VITALS: Ht 177.8 cm; Wt 81.8 kg
[2016-09-22 05:45] VITALS: BP 116/73; PULSE 76; TEMP 36.6; O2SAT 97; Ht 177.8 cm; Wt 81.8 kg
[2016-09-22] MEDS ORDERED: LACTATED RINGER'S 1000ML 1,000 ML IV SCH ×2 (06:00→08:57)
[2016-09-22] MEDS ORDERED: NEOSTIGMINE METHYLSULFATE 5 MG/5 ML SYR ONE (06:28)
[2016-09-22] MEDS ORDERED: GLYCOPYRROLATE INJ 0.2 MG/ML VIAL ONE (06:28)
[2016-09-22] MEDS ORDERED: ROCURONIUM BROMIDE 10 MG/ML 5 ML VIAL ONE (06:28)
[2016-09-22] MEDS ORDERED: DEXAMETHASONE SOD INJ 4 MG/ML VIAL ONE (06:28)
[2016-09-22] MEDS ORDERED: LIDOCAINE HCL 2% 2 ML VIAL (20MG/ML) ONE (06:28)
[2016-09-22] MEDS ORDERED: ONDANSETRON INJ 2 MG/ML 2 ML VIAL ONE (06:28)
[2016-09-22] MEDS ORDERED: PROPOFOL IV EMULSION 10 MG/ML 20 ML VIAL IV ONE (06:28)
[2016-09-22] MEDS ORDERED: MIDAZOLAM HCL 1 MG/ML 2ML VIAL ONE (06:29)
[2016-09-22] MEDS ORDERED: FENTANYL CITRATE INJ 50 MCG/1 ML 2 ML VIAL ONE (06:29)
--- NOTE | 2016-09-22 06:31 | History and Physical ---
History & Physical Date Sep 22, 2016. History of Present Illness The patient is a 46 year old male with complaints of nathan ing hernia left symp, s/p right radical colectomy for carcinoid tumor nicole 2 months ago doing well from that and no need for further rx sees oncology for continued f/u here for lap repair nathan ing hernia possible open, pt aware that if open procedure needed will only do symp side that is the left Past Medical/Surgical History Medical Problems: (1) Carcinoid tumor Additional History Hepatic Disease: No Endocrine Disorder: No Kidney Disease: No Hypertension: No Heart Disease: No Bleeding Tendencies: No Infectious Diseases: No Allergies Coded Allergies: Penicillins (Verified Allergy, Mild, FAMILY HISTORY OF REACTION AND YOU HAVE NOT HAD ANY PCN, 09/22/16) NO KNOWN DRUG ALLERGIES (Verified Allergy, Unknown, ., 09/22/16) Home Medications No Active Prescriptions or Reported Meds Physical Examination Skin: warm/dry, no rash Eyes: normal inspection, EOMI, sclerae normal ENT: normal ENT inspection, pharynx normal Head: normocephalic, atraumatic Neck: supple, no adenopathy, trachea midline Respiratory/Chest: lungs clear, normal breath sounds, no respiratory distress Cardiovascular: regular rate, rhythm, no edema, no murmur Abdomen / GI: + pertinent finding (incision midline mostly supraumbilically, nathan ing hernia small testes normal) Back: normal inspection Extremities: normal inspection, normal range of motion Genitourinary - Male: normal testicles Neurologic/Psych: no motor/sensory deficits, alert, normal reflexes, oriented x 3 Diagnosis bilateral ing hernia left symp ASA Classification: ASA Class I Plan of Treatment laparoscopic nathan ing hernia repair(pt marked) in unable to do lap will proceed with left ing hernia repair open do this side only since symp r and c explained to pt including placing urinary cath after asleep
[2016-09-22] MEDS ORDERED: BACITRACIN 50000 UNIT VIAL ONE (06:50)
[2016-09-22] MEDS ORDERED: BUPIVACAINE 0.5 % 5 MG/1 ML MPF 30ML VIAL ONE (06:50)
[2016-09-22] MEDS ORDERED: LACTATED RINGER'S 1000ML 1,000 ML IV PRN (07:16)
[2016-09-22] MEDS ORDERED: KETOROLAC TROMETHAMINE 30 MG/ML VIAL IV. PRN (07:30)
[2016-09-22] MEDS ORDERED: MoRPHine SULFATE 10 MG/ML CARP/VIAL IV PRN (07:30)
[2016-09-22] MEDS ORDERED: ONDANSETRON INJ 2 MG/ML 2 ML VIAL IV PRN ×2 (07:30→09:00)
[2016-09-22] MEDS ORDERED: CEFAZOLIN SOD 1 GM VIAL ONE (07:51)
[2016-09-22] MEDS ORDERED: KETOROLAC TROMETHAMINE 30 MG/ML VIAL ONE (07:51)
[2016-09-22] MEDS ORDERED: OXYC-57 PO (09:00)
[2016-09-22] MEDS ORDERED: OXYCODONE/ACETAMINOPHEN 5-325 TAB PO PRN (09:00)
[2016-09-22] MEDS ORDERED: MoRPHine SULFATE 4 MG/ML 1 ML CARP\\VIAL IV PRN (09:00)
--- NOTE | 2016-09-22 09:03 | Discharge Instructions ---
Discharge Instructions Date of Service Sep 22, 2016. Visit Reason for Visit: Bilateral Inguinal Hernias Discharge Discharge Diagnosis / Problem: laparoscopic hernia repairs Discharge Goals Goal(s): Decrease discomfort Activity Recommendations Activity Limitations: as noted below Lifting Limitations: no more than 10 pounds Shower/Bathe: tomorrow Driving or Machine Use: 1 week Anesthesia . Post Anesthesia Instructions: If you have had General Anesthesia or IV Sedation: * Do not drive today. * Resume driving when surgeon permits. * Do not make important decisions or sign legal documents today. * Call surgeon for: 1. Temperature elevations greater than 101 degrees F. 2. Uncontrollable pain. 3. Excessive bleeding. 4. Persistent nausea and vomiting. 5. Medication intolerance (nausea, vomiting or rash). * For nausea and vomiting use only clear liquids such as: tea, soda, bouillon until nausea subsides, then gradually increase diet as tolerated. * If you have any concerns or questions, call your surgeon's office. If physician is unavailable and it is an emergency, call 911 or go to the nearest emergency room. . Instructions / Follow-Up Instructions / Follow-Up Dr. Altman office in 1 week, call [phone] if you do not already have an appt Ice each groin alternating from right to left every 20 minutes until bedtime Diet Recommendations Recommended Home Diet: no limitations Procedures Procedures Performed: Bilateral Laparoscopic Inguinal Hernia Repair with Mesh Pending Studies Studies pending at discharge: no Medical Emergencies . Who to Call and When: Medical Emergencies: If at any time you feel your situation is an emergency, please call 911 immediately. . Non-Emergent Contact Non-Emergency issues call your: Surgeon Call Non-Emergent contact if: you have a fever, temperature is above 101.5, your pain is not controlled . . "Provider Documentation" section prepared by Omega Ortiz. . [place] Drug Monitoring Program Search Results: no issues identified
--- NOTE | 2016-09-22 09:03 | [facility] Post Operative Brief Note ---
Immediate Operative Summary Operative Date Sep 22, 2016. Pre-Operative Diagnosis Inguinal Hernia bilateral left symp Post-Operative Diagnosis Inguinal Hernia nathan direct and lipoma cord Procedure(s) Performed Bilateral Laparoscopic Inguinal Hernia Repair with Mesh(preformed cupped) Surgeon Dr Sj Alvarez [facility](s) Omega Ortiz PA-C Estimated Blood Loss 5ML Findings nathan indirect hernia and large lipoma cord Right smaller on left Specimens #1: Urine sent for culture and sensitivity
[2016-09-22] MEDS: FENTANYL CITRATE INJ 50 MCG/1 ML 2 ML VIAL IV PRN ×2 (09:17→09:22)
--- NOTE | 2016-09-22 09:34 | OPERATIVE REPORT ---
DATE OF OPERATION: 09/22/2016 PREOPERATIVE DIAGNOSIS: Bilateral inguinal hernia, left symptomatic. POSTOPERATIVE DIAGNOSIS: Same, bilateral indirect hernia with lipoma of the cord, the right being longer than the left. PROCEDURE: Laparoscopic repair of bilateral indirect hernia. SURGEON: Dr. Alvarez. HERBARIUM CURATOR: Talib Ortiz PA-C. OPERATION AND FINDINGS: SUMMARY: The patient was brought into the operating room theater. Sanchez catheter had been positioned. The abdomen was prepped with Betadine solution and properly draped. We made a small transverse incision just above the umbilicus sufficient enough to dissect down and grab the abdominal wall with Stefanie clamps. The patient had a midline incision extended right of the umbilicus from right hemicolectomy that was done about 2 months ago. Once we elevated the fascia, we were able then to enter the peritoneal cavity with a hemostat without meeting any adhesions. We then placed a 5 mm trocar in the area under direct visualization. CO2 insufflated. At this point, we were able to place the scope and visualize we were intraabdominally. There were no real adhesions to the abdominal wall. There were some adhesions just in the upper aspect of the incision, but we were away from that. At this point, under direct visualization, we placed a 5 mm right flank port with preemptive local analgesia Marcaine. This was placed 1 on the left side, both at the level of the umbilicus lateral to the rectus abdominis. The patient was then placed in Trendelenburg position. We inspected the pelvic area where again no adhesions were appreciated. On the right side the patient did not have any real obvious indentation of the indirect area or the direct area. We at this point incised the peritoneal cavity just above the internal ring, taken out to the medial umbilical ligament. We created the peritoneum elevated from the muscular fascial planes that we have enough to cover eventually. At this point, we were able to dissect out the inferior epigastric vessels were left intact. We dissected down and identified that the patient has significant lipoma going down along the cord into the scrotal area. We then were able to return this all intraabdominally. We did not remove it. We were able to free it. The cord itself had no real fatty tissue of any significance. We dissected the peritoneum down to the peritoneal reflection so the mesh would lay on properly. We then dissected down to Ronaldo's ligament and symphysis pubis area. Once we had this all dissected out at this point my attention was turned to the left inguinal area where similarly we incised the peritoneum above the internal ring all the way to the medial umbilical ligament and creating an arch around the triangle of doom. The patient looked like it had a direct defect in this particular area rather than indirect, but once we started dissecting out the patient had a very prominent iliohypogastric vessels going down towards the iliac arteries. It had a significant amount of fatty tissue around that area. We dissected all out and found that the patient had an indirect hernia down in along the canal. We freed that fatty tissue up, mobilizing the cord that we were sufficient enough that we were in the muscular fascial planes. We also went down along Ronaldo's ligament towards the symphysis pubis to dissect that plane out also. There was no other evidence of any other weaknesses. At this point, we brought in the left and right cupped preformed Marlex mesh pieces that we then placed them both going through the umbilical ligament by elevating what we had done with stay sutures and placed both in the abdomen, replaced the 5 mm trocar. At this point, we placed them appropriately with the curved aspect going up along and above the conjoined tendon. We tacked it down to Ronaldo's ligament on the right side first, tacked it down above the triangle of doom sufficient enough that the mesh laid appropriately without any difficulty and free of any tension. At this point, we similarly placed it on the left side, incorporating the conjoined tendon with the mesh, avoiding the triangle of doom using Ronaldo's ligament to fasten it along the symphysis pubis. Once this had been performed, we then cut the pneumoperitoneum down to about 7 and were able to use conrad to completely reapproximate the peritoneum and completely exteriorizing mesh from intraabdominal contents. This was done bilaterally. Prior to exiting the abdomen, we were able then to visualize under direct visualization removal of the 5 mm trocars on both sides and lastly umbilical trocar was removed. An 0 Vicryl suture x2 was used to control the umbilical opening. There was a small bleeder just inferior to the first suture. We controlled with another 0 Vicryl suture [id number]. Hemostasis was satisfactory. 4-0 Monocryl was used for the subcutaneous tissue. Steri-Strips applied. The procedure was tolerated well by the patient. Minimal blood loss was 5 mL. The patient was taken to recovery room in good condition. I attest to the content of the Intraoperative Record and any orders documented therein. Any exceptio ns are noted below.
--- NOTE | 2016-09-22 09:45 | Anesthesiology Progress Note ---
Anesthesia Post Op Note Date & Time Sep 22, 2016 at 09:44 Vital Signs Pain Intensity: 4 Vital Signs Past 12 Hours Date Time Temp Pulse Resp B/P Pulse Ox O2 Delivery O2 Flow Rate FiO2 09/22/16 09:35 36 66 16 116/61 98 Room Air 09/22/16 09:25 74 16 116/77 99 Room Air 09/22/16 09:15 66 16 115/74 99 Mask 10 09/22/16 09:05 82 16 102/65 100 Mask 10 09/22/16 08:58 36.1 88 16 124/68 100 Mask 10 09/22/16 05:45 36.6 76 16 116/73 97 Room Air Notes Mental Status: alert / awake / arousable, participated in evaluation Pt Amnestic to Procedure: Yes Nausea / Vomiting: adequately controlled Pain: adequately controlled Airway Patency, RR, SpO2: stable & adequate BP & HR: stable & adequate Hydration State: stable & adequate Anesthetic Complications: no major complications apparent Pt doing well.
[2016-09-22 09:50] VITALS: BP 116/55; PULSE 66; TEMP 36.4; O2SAT 96
[2016-09-22 10:20] VITALS: BP 106/65; PULSE 73; O2SAT 96
[2016-09-22 10:50] VITALS: BP 103/56; PULSE 96; TEMP 36.2; O2SAT 97
[2016-09-22] MEDS ORDERED: OXYCODONE/ACETAMINOPHEN 5-325 TAB ONE (11:21)
== END 2016-09-22 11:45 | disposition home or self-care (01) ==
LOC: C.ACU 05:22
PROVIDERS: ATTEND Surgery
DX: K40.20 Bilateral inguinal hernia, without obstruction or gangrene, not specified as recurrent (principal); Z98.52 Vasectomy status; Z90.49 Acquired absence of other specified parts of digestive tract; Z88.0 Allergy status to penicillin; Z68.26 Body mass index [BMI] 26.0-26.9, adult

== ENCOUNTER 2017-02-01 09:06 | Emergency (ER) | payer BC ==
[~2017-02-01] VITALS: Ht 177.8 cm; Wt 83.4 kg
[~2017-02-01 09:06] MED LIST changes: -IBUP-1459 PO
[2017-02-01 09:09] VITALS: TEMP 36.7; Ht 177.8 cm; Wt 83.4 kg
[2017-02-01] MEDS ORDERED: OPTIRAY 320 IV PRN (09:45)
[2017-02-01 10:10] LABS: BASO % 0.5 %; BASO ABS # 0.03 K/uL (0-0.2); COMPLETE YES; EOS % 3.4 %; HEMATOCRIT 44.1 % (42-52); LYMPH % 34.7 %; LYMPH ABS # 1.92 K/uL (1.2-3.4); MEAN CELL VOLUME 90.2 fL (80-100); MEAN CORPUSCULAR HEMOGLOBIN 30.3 pg (25-34); MEAN CORPUSCULAR HGB CONC 33.6 g/dl (32-36); MEAN PLATELET VOLUME 10.2 fL (7.4-10.4); MONO % 11.9 %; NEUT % 49.5 %; PLATELET COUNT 206 K/uL (130-400); RED BLOOD COUNT 4.89 M/uL (4.7-6.1); WHITE BLOOD COUNT 5.53 K/uL (4.8-10.8)
[2017-02-01 10:16] LABS: BUN/CREATININE RATIO 15.7 (10-20); CREATININE 0.96 mg/dl (0.60-1.40); POTASSIUM 4.1 mmol/L (3.5-5.1)
[2017-02-01 10:18] LABS: URINE APPEARANCE CLEAR (CLEAR); URINE BILIRUBIN NEG (NEG); URINE COLOR YELLOW; URINE NITRITE NEG (NEG); URINE SPECIFIC GRAVITY 1.025 (1.000-1.030); UROBILINOGEN NEG (NEG); ZZUR CULT IF INDIC CLEAN CATCH NO
[2017-02-01 10:19] LABS: MANUAL MICROSCOPIC REQUIRED? NO; REVIEW REQ? NO
--- NOTE | 2017-02-01 10:29 | DIAGNOSTIC IMAGING REPORT ---
RIGHT RIBS UNILATERAL WITH PA CHEST HISTORY: 46 years-old Male right sided chest pain s/p fall Right acute right-sided chest pain status post fall. COMPARISON: CT chest 05/30/2016. TECHNIQUE: Frontal view of the chest with 4 views of the right ribs FINDINGS: Cardiomediastinal and hilar silhouettes are within normal limits. Mild biapical pleural-parenchymal scarring is noted without pneumothorax, pleural effusion or focal airspace consolidation. No overt pulmonary edema. Surgical clips are seen within the right upper abdomen. Ribs appear intact without acute displaced rib fracture identified. IMPRESSION: 1. No acute cardiopulmonary process. 2. No acute displaced rib fracture or pneumothorax identified. The above report was generated using voice recognition software. It may contain grammatical, syntax or spelling errors. Electronically signed by: Kurt Lopez M.D. 02/01/2017 10:28 AM Dictated Date/Time: 02/01/2017 10:26 AM
--- NOTE | 2017-02-01 11:15 | DIAGNOSTIC IMAGING REPORT ---
ABD/PELVIS IV CONTRAST ONLY CT DOSE: 356.85 mGy.cm HISTORY: Trauma. Pain. rug abd pain s/p trauma TECHNIQUE: Multiaxial CT images of the abdomen and pelvis were performed following the use of intravenous contrast. A dose lowering technique was utilized adhering to the principles of ALARA. COMPARISON STUDY: 05/30/2016 FINDINGS: Lung bases are clear. Liver spleen and pancreas enhance uniformly. Kidneys negative for hydronephrosis. Perinephric spaces are unremarkable. Bowel pattern within the abdomen and pelvis is nonobstructive. There is no free fluid within the abdomen or pelvic region. Scattered surgical clips are present unchanged in the prior study. Survey evaluation of the osseous structures shows unremarkable. IMPRESSION: No acute process The above report was generated using voice recognition software. It may contain grammatical, syntax or spelling errors. Electronically signed by: Tommy Skinner M.D. 02/01/2017 11:14 AM Dictated Date/Time: 02/01/2017 11:10 AM
[2017-02-01] MEDS ORDERED: IBUP-1459 PO (11:21)
[2017-02-01 12:02] VITALS: BP 118/72; PULSE 57; O2SAT 99
--- NOTE | 2017-02-01 16:27 | EMERGENCY ROOM VISIT NOTE ---
History Report prepared by Hedy: Mariam Suh Under the Supervision of: Aure KennedyO. First contact with patient: 09:28 Chief Complaint: RIB PAIN Stated Complaint: SORE RIBS History of Present Illness The patient is a 46 year old male who presents to the Emergency Room with complaints of worsening right-sided rib pain for the past 6 days. He was leaving his neighbor's house over a week ago and tripped walking up a set of concrete stairs. He fell into a concrete wall with a sharp edge and hit the right side of his ribs. He states that initially after the incident he did not have any pain. Six days ago he was driving and went to turn the steering wheel. He developed a sharp pain in the right side of his ribs. He states that the area has been painful ever since then. The patient rates his pain as a 10/10 in severity. Sitting still helps to alleviate his pain, while coughing, laughing, twisting, turning and moving exacerbates his pain. He denies fevers, abdominal pain, nausea, and vomiting. Source of History: patient Onset: 6 days ago Position: other (right sided ribs) Symptom Intensity: 10/10 Quality: sharp Timing: worsening Modifying Factors (Worsening): movement, other (twisting, laughing, coughing ) Modifying Factors (Relieving): other (remaining still) Associated Symptoms: No fevers, No nausea, No vomiting, No abdominal pain Review of Systems See HPI for pertinent positives & negatives. A total of 10 systems reviewed and were otherwise negative. 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 Family History Diabetes mellitus FH: cancer FH: gallbladder disease FH: heart disease FH: lung disease Hypertension Kidney disease Kidney stones Social History Smoking Status: Never Smoker Smokeless Tobacco Use: No Alcohol Use: occasionally Marital Status: Housing Status: lives with family Occupation Status: employed Current/Historical Medications Scheduled PRN Ibuprofen (Motrin), 400 MG PO Q6H PRN for Pain Allergies Coded Allergies: Penicillins (Verified Allergy, Mild, FAMILY HISTORY OF REACTION AND YOU HAVE NOT HAD ANY PCN, 02/01/17) NO KNOWN DRUG ALLERGIES (Verified Allergy, Unknown, ., 02/01/17) Physical Exam Vital Signs Date Time Temp Pulse Resp B/P (MAP) Pulse Ox O2 Delivery O2 Flow Rate FiO2 02/01/17 12:02 57 18 118/72 99 02/01/17 11:13 60 18 108/71 98 Room Air 02/01/17 09:09 36.7 86 20 116/73 99 Room Air Physical Exam GENERAL: alert, well appearing, well nourished, no distress, non-toxic HEAD: normal cephalic, atraumatic EYE EXAM: normal conjunctiva, PERRL and EOM's grossly intact OROPHARYNX: no exudate, no erythema, lips, buccal mucosa, and tongue normal and mucous membranes are moist EARS: TMs clear b/l NECK: supple, no nuchal rigidity, no adenopathy, non-tender CHEST: stable to compression anteriorly and posteriorly, tender to palpation in the right flank tracking up to RUQ. LUNGS: clear to auscultation. Normal chest wall mechanics HEART: no murmurs, S1 normal and S2 normal ABDOMEN: abdomen soft, non-tender, normo-active bowel sounds, no masses, no rebound or guarding. PELVIS: stable to compression anteriorly and posteriorly BACK: Back is symmetrical on inspection and there is no deformity, no midline tenderness, no CVA tenderness. UPPER EXTREMITIES: full active and passive range of motion of all joints without tenderness to palpation LOWER EXTREMITIES: full active and passive range of motion of all joints without tenderness to palpation NEURO EXAM: Normal sensorium, cranial nerves II-XII grossly intact, normal speech, no gross weakness of arms, no gross weakness of legs. GCS: 15. Medical Decision & Procedures ER Provider Diagnostic Interpretation: Radiology results as stated below per my review and the radiologist's interpretation: RIGHT RIBS UNILATERAL WITH PA CHEST HISTORY: 46 years-old Male right sided chest pain s/p fall Right acute right-sided chest pain status post fall. COMPARISON: CT chest 05/30/2016. TECHNIQUE: Frontal view of the chest with 4 views of the right ribs FINDINGS: Cardiomediastinal and hilar silhouettes are within normal limits. Mild biapical pleural-parenchymal scarring is noted without pneumothorax, pleural effusion or focal airspace consolidation. No overt pulmonary edema. Surgical clips are seen within the right upper abdomen. Ribs appear intact without acute displaced rib fracture identified. IMPRESSION: 1. No acute cardiopulmonary process. 2. No acute displaced rib fracture or pneumothorax identified. The above report was generated using voice recognition software. It may contain grammatical, syntax or spelling errors. Electronically signed by: Kurt Lopez M.D. 02/01/2017 10:28 AM Dictated Date/Time: 02/01/2017 10:26 AM ABD/PELVIS IV CONTRAST ONLY CT DOSE: 356.85 mGy.cm HISTORY: Trauma. Pain. rug abd pain s/p trauma TECHNIQUE: Multiaxial CT images of the abdomen and pelvis were performed following the use of intravenous contrast. A dose lowering technique was utilized adhering to the principles of ALARA. COMPARISON STUDY: 05/30/2016 FINDINGS: Lung bases are clear. Liver spleen and pancreas enhance uniformly. Kidneys negative for hydronephrosis. Perinephric spaces are unremarkable. Bowel pattern within the abdomen and pelvis is nonobstructive. There is no free fluid within the abdomen or pelvic region. Scattered surgical clips are present unchanged in the prior study. Survey evaluation of the osseous structures shows unremarkable. IMPRESSION: No acute process The above report was generated using voice recognition software. It may contain grammatical, syntax or spelling errors. Electronically signed by: Tommy Skinner M.D. 02/01/2017 11:14 AM Dictated Date/Time: 02/01/2017 11:10 AM Laboratory Results 02/01/17 09:55 Red Blood Count 4.89, Mean Corpuscular Volume 90.2, Mean Corpuscular Hemoglobin 30.3, Mean Corpuscular Hemoglobin Concent 33.6, Mean Platelet Volume 10.2, Neutrophils (%) (Auto) 49.5, Lymphocytes (%) (Auto) 34.7, Monocytes (%) (Auto) 11.9, Eosinophils (%) (Auto) 3.4, Basophils (%) (Auto) 0.5, Neutrophils # (Auto ) 2.73, Lymphocytes # (Auto) 1.92, Monocytes # (Auto) 0.66, Eosinophils # (Auto ) 0.19, Basophils # (Auto) 0.03 02/01/17 09:55 Test 02/01/17 09:55 02/01/17 10:05 White Blood Count 5.53 K/uL (4.8-10.8) Red Blood Count 4.89 M/uL (4.7-6.1) Hemoglobin 14.8 g/dL (14.0-18.0) Hematocrit 44.1 % (42-52) Mean Corpuscular Volume 90.2 fL (80-100) Mean Corpuscular Hemoglobin 30.3 pg (25-34) Mean Corpuscular Hemoglobin Concent 33.6 g/dl (32-36) Platelet Count 206 K/uL (130-400) Mean Platelet Volume 10.2 fL (7.4-10.4) Neutrophils (%) (Auto) 49.5 % Lymphocytes (%) (Auto) 34.7 % Monocytes (%) (Auto) 11.9 % Eosinophils (%) (Auto) 3.4 % Basophils (%) (Auto) 0.5 % Neutrophils # (Auto) 2.73 K/uL (1.4-6.5) Lymphocytes # (Auto) 1.92 K/uL (1.2-3.4) Monocytes # (Auto) 0.66 K/uL (0.11-0.59) Eosinophils # (Auto) 0.19 K/uL (0-0.5) Basophils # (Auto) 0.03 K/uL (0-0.2) RDW Standard Deviation 43.8 fL (36.4-46.3) RDW Coefficient of Variation 13.3 % (11.5-14.5) Immature Granulocyte % (Auto) 0.0 % Immature Granulocyte # (Auto) 0.00 K/uL (0.00-0.02) Anion Gap 5.0 mmol/L (3-11) Est Creatinine Clear Calc Drug Dose 100.3 ml/min Estimated GFR () 110.2 Estimated GFR (Non- 95.1 BUN/Creatinine Ratio 15.7 (10-20) Calcium Level 9.0 mg/dl (8.5-10.1) Total Bilirubin 0.4 mg/dl (0.2-1) Direct Bilirubin 0.1 mg/dl (0-0.2) Aspartate Amino Transf (AST/SGOT) 25 U/L (15-37) Alanine Aminotransferase (ALT/SGPT) 39 U/L (12-78) Alkaline Phosphatase 94 U/L (45-117) Total Protein 7.7 gm/dl (6.4-8.2) Albumin 4.0 gm/dl (3.4-5.0) Lipase 93 U/L (73-393) Urine Color YELLOW Urine Appearance CLEAR (CLEAR) Urine pH 7.0 (4.5-7.5) Urine Specific [place] 1.025 (1.000-1.030) Urine Protein NEG (NEG) Urine Glucose (UA) NEG (NEG) Urine Ketones NEG (NEG) Urine Occult Blood NEG (NEG) Urine Nitrite NEG (NEG) Urine Bilirubin NEG (NEG) Urine Urobilinogen NEG (NEG) Urine Leukocyte Esterase NEG (NEG) Urine WBC (Auto) 1-5 /hpf (0-5) Urine RBC (Auto) 0-4 /hpf (0-4) Urine Hyaline Casts (Auto) 1-5 /lpf (0-5) Urine Epithelial Cells (Auto) 5-10 /lpf (0-5) Urine Bacteria (Auto) NEG (NEG) Laboratory results per my review. ECG Indication: chest pain Rate (beats per minute): 65 Rhythm: normal sinus Findings: no ectopy, other (normal axis) Comparison ECG Date: 06/10/2016 Change: no significant change ED Course ED COURSE: Vital signs were reviewed and showed normal vitals The patients medical record was reviewed The above diagnostic studies were performed and reviewed. ED treatments and interventions as stated above. 0928: The patient was evaluated in room A11B. A complete history and physical examination was performed. 1153: Upon reevaluation, the patient is feeling better and resting comfortably. I discussed my findings with the patient and he understands and agrees with the treatment plan. Based on the patients age, coexisting illnesses, exam and lab findings the decision to treat as an outpatient was made. The patient remained stable while under my care. The patient appeared well at the time of discharge. Medical Decision Differential diagnoses include major intracranial, cervical, spinal, thoracic, abdominal, pelvic and neurologic injury. Fracture, contusion, sprain, strain, laceration, abrasions included as well. Patient is a 46-year-old male presents to the ER for right-sided chest/flank pain which has been present since he fell over a week ago last Monday. He notes that after he fell he had mild achiness on the right side. While he was driving he turned the wheel to the right and had significant right-sided pain which has been present since then. On exam he had minimal tenderness in the right upper quadrant but reproducible tenderness along his right lateral ribs. CBC normal with BP, LFTs, bilirubin lipase is normal. UA was negative. CT of abdomen and pelvis unremarkable. X-rays of the ribs showed no acute fractures. EKG was nondiagnostic. As his pain was reproducible felt it was musculoskeletal and this was consistent with his history. Troponin was not obtained. This is not suggestive of PE. Patient was given IV Toradol. He was feeling slightly better. He is at the bedside and discharged follow-up with PCP for musculoskeletal CP. Discussed with Pt concerning signs and symptoms to watch out for. Pt was instructed to follow up with their PCP and discussed with the patient their option to return to the ED at anytime for persistent or worsening symptoms. The appropriate anticipatory guidance and out-patient management, including indications for return to the emergency department, were explained at length to the patient and understood. Medication Reconcilliation Current Medication List: was personally reviewed by me Blood Pressure Screening Patient's blood pressure: Normal blood pressure Impression Primary Impression: Contusion of rib on right side Scribe Attestation The scribe's documentation has been prepared under my direction and personally reviewed by me in its entirety. I confirm that the note above accurately reflects all work, treatment, procedures, and medical decision making performed by me. Departure Information Dispostion Home / Self-Care Referrals No Doctor, Assigned (PCP) Forms HOME CARE DOCUMENTATION FORM, IMPORTANT VISIT INFORMATION, WORK / SCHOOL INSTRUCTIONS Patient Instructions ED Contusion Rib, My [facility] Additional Instructions Please follow up with your primary care doctor or if you are a student, [facility] with in the next 24 hours. Any worsening of your symptoms, please return to the ED immediately. This includes any fevers greater than 100.4, worsening pain, chest pain, shortness breath, persistent nausea, vomiting, unable to eat or drink, or any other concerning signs or symptoms from your standpoint. Please take Motrin or Tylenol as needed for pain. Problem Qualifiers Primary Impression: Contusion of rib on right side Encounter type: initial encounter Qualified Codes: S20.211A - Contusion of right front wall of thorax, initial encounter
== END 2017-02-01 12:03 | disposition home or self-care (01) ==
LOC: C.EDB 09:07 → C.EDA 12:03
DX: S20.211A Contusion of right front wall of thorax, initial encounter (principal); W19.XXXA Unspecified fall, initial encounter; D3A.8 Other benign neuroendocrine tumors; Z83.3 Family history of diabetes mellitus; Z82.49 Family history of ischemic heart disease and other diseases of the circulatory system

== ENCOUNTER → 2017-02-07 | Outpatient (CLI) | payer BC ==
[~2017-02-07] MED LIST changes: +IBUP-1459 PO; +OPTIRAY 320 IV PRN; -OXYC-57 PO
--- NOTE | 2017-02-07 08:26 | DIAGNOSTIC IMAGING REPORT ---
CT OF THE CHEST WITH IV CONTRAST CLINICAL HISTORY: MALIGNANT NEUROENDOCRINE TUMOR COMPARISON STUDY: General second 2016 TECHNIQUE: Following the IV administration of 92 mL of Optiray-320, CT of the thorax was performed from the thoracic inlet to the lung bases. Images are reviewed in the axial, sagittal, and coronal planes. IV contrast was administered without complication. A dose lowering technique was utilized adhering to the principles of ALARA. CT DOSE: 763.27 mGy.cm FINDINGS: Thyroid: Imaged portions of the thyroid gland are normal in appearance. Thoracic aorta: The thoracic aorta is normal in course and caliber, noting standard 3-vessel arch anatomy. No aneurysm or dissection is seen. Pulmonary vasculature: The pulmonary trunk is normal in caliber. There are no central filling defects identified to suggest pulmonary embolus. Note that this examination was not protocoled for the evaluation of pulmonary emboli. HEART: The heart is normal in size and configuration, without pericardial effusion. Lungs and pleural spaces: There are no pleural effusions. There is no focal pulmonary consolidation. There is a stable 2.5 mm right lower lobe pulmonary nodule as visualized on image #[id number] Mediastinum: There is no mediastinal lymphadenopathy. Erma: Clear. Axilla: There is no pathologic axillary lymphadenopathy Upper abdomen: Partially visualized upper abdominal viscera is within normal limits. Skeletal structures: There are no lytic or blastic osseous lesions. IMPRESSION: 1. No change from the prior study 2. Stable 2.5 mm right lower lobe pulmonary nodule 3. No evidence of pathologic adenopathy Electronically signed by: Bang Velásquez M.D. 02/07/2017 8:25 AM Dictated Date/Time: 02/07/2017 8:19 AM
--- NOTE | 2017-02-07 08:33 | DIAGNOSTIC IMAGING REPORT ---
ABD/PELVIS IV AND ORAL CONT CLINICAL HISTORY: 46 years-old Male presenting with MALIGNANT NEUROENDOCRINE TUMOR. TECHNIQUE: Multidetector CT of the abdomen and pelvis was performed after the administration of oral and intravenous contrast. IV contrast: 92 mL of Optiray 320. A dose lowering technique was used consistent with the principles of ALARA (as low as reasonably achievable). COMPARISON: 02/01/2017. CT DOSE (mGy.cm): The estimated cumulative dose is 763.27. FINDINGS: Record Cutter topogram: Evidence of bilateral inguinal hernia repair with multiple coil conrad. Lung bases: Minimal dependent changes likely atelectasis. Normal heart size. No pericardial or pleural effusion. Liver: Normal morphology. No liver lesion. Patent hepatic vasculature. Biliary: No intrahepatic or extrahepatic biliary ductal dilatation. Normal gallbladder. Pancreas: Normal parenchyma. No focal mass lesion. No pancreatic duct dilatation. Spleen: Normal. Adrenal glands: Normal. Kidneys and ureters: Punctate 1 mm nonobstructing left renal calculus in the interpolar region. No hydronephrosis. Normal ureters. Bladder: Normal. Pelvic organs: Prostate and seminal vesicles normal. Postsurgical changes of vasectomy. Bowel: Moderate stool burden throughout normal caliber colon. Oral contrast transits to the mid transverse colon. No bowel obstruction. Suture margins noted in the ileocolic region in the right abdomen from prior ileocolic resection. Peritoneal cavity: No free fluid or intraperitoneal gas. No mesenteric mass. Vasculature: Aorta and IVC patent and normal in caliber. Lymph nodes: No enlarged lymph nodes in the abdomen or pelvis. Abdominal wall: Small fat-containing left inguinal hernia despite the presence of a surgical mesh in the region of the left inguinal canal. Posterior vertebral changes of right inguinal hernia repair also noted. Surgical incision in the midline of the upper abdomen without associated fluid collection. Musculoskeletal: Normal. IMPRESSION: 1. No evidence of a mesenteric mass or metastatic disease in abdomen or pelvis status post ileocolic resection of the well-differentiated neural endocrine tumor. Evaluation for hepatic metastatic disease would be better performed with Eovist liver MR, which could be obtained and subsequent examinations. 2. Nonobstructing left renal calculus. 3. Recurrent left inguinal hernia status post repair. Electronically signed by: Rodolfo Whitten M.D. 02/07/2017 8:31 AM Dictated Date/Time: 02/07/2017 8:19 AM
== END | disposition home or self-care (01) ==
LOC: C.CTS 07:54
PROVIDERS: ATTEND Internal Medicine Hematology & Oncology
DX: C7A.012 Malignant carcinoid tumor of the ileum (principal); R91.1 Solitary pulmonary nodule; N20.0 Calculus of kidney; K40.91 Unilateral inguinal hernia, without obstruction or gangrene, recurrent

== ENCOUNTER → 2017-05-15 | Day surgery (SDC) | payer BC ==
[2017-05-08 13:22] VITALS: BMI 26.0
[~2017-05-15] VITALS: Ht 177.8 cm; Wt 81.8 kg
[~2017-05-15] MED LIST changes: +LIDOCAINE HCL 2% 2 ML VIAL (20MG/ML) ONE; +MIDAZOLAM HCL 1 MG/ML 2ML VIAL ONE; -OPTIRAY 320 IV PRN; +PROPOFOL IV EMULSION 10 MG/ML 20 ML VIAL IV ONE; +SODIUM CHLORIDE 0.9% 500ML 500 ML IV ONE
[2017-05-15 13:17] VITALS: Ht 177.8 cm; Wt 81.8 kg
[2017-05-15 13:30] VITALS: TEMP 37
--- NOTE | 2017-05-15 13:49 | Endo History and Physical ---
History & Physical Date of Service: May 15, 2017. Chief Complaint: NEUROENDOCRINE TUMOR FOLLOW UP Referring Physician: GERTRUDE LONG...NO ASSIGNED YET History of Present Illness 47 yo CM who presents for Colonoscopy secondary to history of Neuroendocrine tumor. Past Surgical History Hx Cardiac Surgery: No Hx Internal Defibrillator: No Hx Pacemaker: No Hx Abdominal Surgery: Yes (BLT INGUINAL HERNIA REPAIR) Hx of Implantable Prosthesis: No Hx Post-Op Nausea and Vomiting: No Hx Cancer Surgery: Yes (COLORECTAL NEUROENDOCRINE TUMOR REMOVED ABDOMINALLY) Hx Thoracic Surgery: No Hx Orthopedic: No Hx Urinary Tract Surgery: Yes (VASECTOMY) Family History Polyp Social History Smoking Status: Never Smoker Hx Substance Use: No Hx Alcohol Use: Yes (5-10 DRINKS OF WINE/BEER WEEKLY) Allergies Coded Allergies: Penicillins (Verified Allergy, Mild, FAMILY HISTORY OF REACTION AND YOU HAVE NOT HAD ANY PCN, 05/08/17) NO KNOWN DRUG ALLERGIES (Verified Allergy, Unknown, ., 05/08/17) Current Medications Reported Home Medications Medications Dose Route/Sig Max Daily Dose Days Date Category Motrin (Ibuprofen) 400 Mg Tab 400 Mg PO Q6H PRN 02/01/17 Reported Vital Signs Weight (Kilograms): 81.82 Height (Feet): 5 Height (Inches): 10 Date Time Temp Pulse Resp B/P (MAP) Pulse Ox O2 Delivery O2 Flow Rate FiO2 05/15/17 13:30 37 90 20 143/71 (95) 97 Room Air Physical Exam General Appearance: WD/WN, no apparent distress Respiratory/Chest: Auscultation: breath sounds normal Cardiovascular: Heart Auscultation: RRR Abdomen: Bowel Sounds: normal Inspection & Palpation: soft, non-distended, no tenderness, guarding & rebound Assessment and Plan Assessment: 47 yo CM who presents for Colonoscopy secondary to history of Neuroendocrine tumor. Plan: Proceed with colonoscopy.
--- NOTE | 2017-05-15 14:59 | Anesthesiology Progress Note ---
Anesthesia Post Op Note Date & Time May 15, 2017 at 14:59 Vital Signs Vital Signs Past 12 Hours Date Time Temp Pulse Resp B/P (MAP) Pulse Ox O2 Delivery O2 Flow Rate FiO2 05/15/17 14:46 94 12 103/65 (78) 98 Room Air 05/15/17 13:30 37 90 20 143/71 (95) 97 Room Air Notes Mental Status: alert / awake / arousable, participated in evaluation Pt Amnestic to Procedure: Yes Nausea / Vomiting: adequately controlled Pain: adequately controlled Airway Patency, RR, SpO2: stable & adequate BP & HR: stable & adequate Hydration State: stable & adequate Anesthetic Complications: no major complications apparent
[2017-05-15 15:16] VITALS: BP 116/70; PULSE 77; O2SAT 96
--- NOTE | 2017-05-15 15:24 | GI REPORT ---
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 Estimated Blood Loss: Estimated blood loss: none. Procedure: Pre-Anesthesia Assessment: - Prior to the procedure, a History and Physical was performed, and patient medications and allergies were reviewed. The patient's tolerance of previous anesthesia was also reviewed. The risks and benefits of the procedure and the sedation options and risks were discussed with the patient. All questions were answered, and informed consent was obtained. Prior Anticoagulants: The patient has taken no previous anticoagulant or antiplatelet agents. ASA Grade Assessment: II - A patient with mild systemic disease. After reviewing the risks and benefits, the patient was deemed in satisfactory condition to undergo the procedure. After I obtained informed consent, the scope was passed under direct vision. Throughout the procedure, the patient's blood pressure, pulse, and oxygen saturations were monitored continuously. The scope was introduced through the anus and advanced to the ileocolonic anastomosis. The colonoscopy was performed without difficulty. The patient tolerated the procedure well. The quality of the bowel preparation was good. The terminal ileum and the rectum were photographed. Findings: The perianal and digital rectal examinations were normal. There was evidence of a prior end-to-side ileo-colonic anastomosis in the ascending colon. This was patent and was characterized by healthy appearing mucosa. The anastomosis was traversed. Two sessile polyps were found in the sigmoid colon. The polyps were 4 to 5 mm in size. These polyps were removed with a hot snare. Resection was complete, but the polyp tissue was only partially retrieved. Non-bleeding internal hemorrhoids were found during retroflexion. The hemorrhoids were small. Impression: - Two 4 to 5 mm polyps in the sigmoid colon, removed with a hot snare. Complete resection. Partial retrieval. - Non-bleeding internal hemorrhoids. Recommendation: - Resume previous diet. - Continue present medications. - Repeat colonoscopy for surveillance based on pathology results. - Return to primary care physician as previously scheduled. Juarez Carter DO 05/15/2017 3:24:31 PM This report has been signed electronically. Note Initiated On: 05/15/2017 2:08 PM I attest to the content of the Intraoperative Record and orders documented therein, exceptions below
--- NOTE | 2017-05-15 15:33 | Discharge Instructions ---
Endoscopy Patient Instructions Date / Procedure(s) Performed May 15, 2017. Colonoscopy Allergy Information Coded Allergies: Penicillins (Verified Allergy, Mild, FAMILY HISTORY OF REACTION AND YOU HAVE NOT HAD ANY PCN, 05/08/17) NO KNOWN DRUG ALLERGIES (Verified Allergy, Unknown, ., 05/08/17) Discharge Date / Findings May 15, 2017. Colon polyps Internal hemorrhoids Medication Instructions OK to resume all medications today as prescribed Reported Home Medications Medications Dose Route/Sig Max Daily Dose Days Date Category Motrin (Ibuprofen) 400 Mg Tab 400 Mg PO Q6H PRN 02/01/17 Reported Provider Instructions Activity Restrictions - No exercising or heavy lifting for 24 hours. - Do not drink alcohol the day of the procedure. - Do not drive a car or operate machinery until the day after the procedure. - Do not make any important decisions or sign important papers in 24 hours after the procedure. Following Day: - Return to full activity which may include returning to work/school. Diet Start your diet with liquids and light foods (jello, soup, juice, toast). Then eat your usual diet if not nauseated. Treatment For Common After Affects For mild abdominal pain, bloating, or excessive gas: - Rest - Eat lightly - Lie on right side Follow-Up Information Follow-up with [facility]NO ASSIGNED YET as scheduled Anesthesia Information What You Should Know You have had a procedure that required some medicine to reduce anxiety and discomfort. This treatment is called moderate sedation. After receiving the treatment, you may be sleepy, but you will be able to breathe on your own. The effects of the treatment may last for several hours. Follow these instructions along with Activity/Diet recommendations noted above: * Do NOT do anything where dizziness or clumsiness would be dangerous. * Rest quietly at home today, then you can be up and about tomorrow. * Have a responsible person stay with you the rest of today. * You may have had an I.V. today. If so, you may take the dressing off later today. Recommendations Call your doctor if: * Trouble breathing * Continuous vomiting for more than 24 hours * Temperature above 101 degrees * Severe abdominal pain or bloating * Pain not relieved by pain medicine ordered * There is increased drainage or redness from any incision * A large amount of rectal bleeding greater than 2-3 tablespoons. (If you had a polyp/s removed or have hemorrhoids, a small amount of blood - from the rectum is to be expected.) * You have any unanswered questions or concerns. IN THE EVENT OF A SERIOUS EMERGENCY, GO TO THE NEAREST EMERGENCY ROOM Your discharge instructions were prepared by provider Juarez Carter. Patient Instructions Signature Page Jose Barrera Patient (or Guardian) Signature/Date: I have read and understand the instructions given to me by my caregivers. Caregiver/RN/Doctor Signature/Date: The above-named patient and/or guardian has received patient instructions on this date. + Original Patient Signature Page (only) stays with chart. Please make copy for patient.
== END | disposition home or self-care (01) ==
LOC: C.GI 12:43
PROVIDERS: ATTEND Internal Medicine
DX: Z12.11 Encounter for screening for malignant neoplasm of colon (principal); D12.5 Benign neoplasm of sigmoid colon; K64.8 Other hemorrhoids; Z98.52 Vasectomy status; Z87.442 Personal history of urinary calculi; Z85.00 Personal history of malignant neoplasm of unspecified digestive organ

== ENCOUNTER → 2017-07-22 | Outpatient (CLI) | payer BC ==
[~2017-07-22] MED LIST changes: -LIDOCAINE HCL 2% 2 ML VIAL (20MG/ML) ONE; -MIDAZOLAM HCL 1 MG/ML 2ML VIAL ONE; -PROPOFOL IV EMULSION 10 MG/ML 20 ML VIAL IV ONE; -SODIUM CHLORIDE 0.9% 500ML 500 ML IV ONE
== END | disposition home or self-care (01) ==
LOC: C.LAB1850 10:28
PROVIDERS: ATTEND Physician Assistant
DX: R39.12 Poor urinary stream (principal)